=== PATIENT | male | born 1980 | race American Indian/Alaskan Native ===

== ENCOUNTER 2019-10-09 12:50 | Inpatient (IN) | payer OTHER ==
[2019-10-09] MEDS ORDERED: NALOXONE 0.4 MG/1 ML INJ IV PRN (12:59)
--- NOTE | 2019-10-09 13:02 | Emergency Department Report ---
ED General Adult HPI - General Chief complaint: Medical Clearance Stated complaint: POSS OD Time Seen by Provider: 10/09/19 12:58 Source: patient, EMS (verbal report received from EMS.EMS records not available at this time for chart dictation or review.), RN notes reviewed, old records reviewed Mode of arrival: Stretcher Limitations: Altered Mental Status, Physical Limitation - History of Present Illness Initial comments: Patient is a 39-year-old gentleman who is brought to the hospital by emergency medical services for possible overdose. Patient found in bed, and there is suspicion that he may have taken recreational ecstasy. EMS gave the patient Narcan in the field, which improved his mental status. They reported normal Accu-Chek in the field. Currently, the patient is awake, denies homicidality, suicidality physical pain. At the moment, he is not commenting on whether or not he took any drugs or medications. He denies headache, neck pain, chest pain, abdominal pain, homicidality, suicidality, intention to overdose. He indicates he does not have a primary care doctor. He apparently vomited on himself prior to arrival. -: This afternoon Consistency: other Improves with: other Worsens with: other - Related Data Previous Rx's Medication Instructions Recorded Last Taken Type DOXYCYCLINE Hyclate [Vibramycin 100 mg PO BID #20 capsule 04/09/14 Unknown Rx CAP] HYDROcodone/APAP 5-325 [[place] 1 each PO Q6HR PRN #14 tablet 04/09/14 Unknown Rx 5-325 mg TAB] Ibuprofen [Motrin] 800 mg PO Q8H PRN #20 tablet 04/09/14 Unknown Rx Allergies Allergy/AdvReac Type Severity Reaction Status Date / Time No Known Allergies Allergy Verified 10/09/19 13:26 ED Review of Systems ROS: Stated complaint: POSS OD Other details as noted in HPI Constitutional: denies: fever Eyes: denies: eye discharge ENT: denies: dental pain Respiratory: denies: wheezing Cardiovascular: denies: chest pain Gastrointestinal: denies: abdominal pain Neurological: confusion Psychiatric: denies: suicidal thoughts Hematological/Lymphatic: denies: easy bleeding ED Past Medical Hx - Past Medical History Additional medical history: scoliosis - Social History Smoking Status: Current Every Day Smoker Substance Use Type: Alcohol, Marijuana - Medications Home Medications: Home Medications Medication Instructions Recorded Confirmed Last Taken Type DOXYCYCLINE Hyclate [Vibramycin 100 mg PO BID #20 capsule 04/09/14 Unknown Rx CAP] HYDROcodone/APAP 5-325 [[place] 1 each PO Q6HR PRN #14 tablet 04/09/14 Unknown Rx 5-325 mg TAB] Ibuprofen [Motrin] 800 mg PO Q8H PRN #20 tablet 04/09/14 Unknown Rx ED Physical Exam - General Limitations: Other (patient a little bit confused.) General appearance: anxious, in distress - Head Head exam: Present: atraumatic, normocephalic - Eye Eye exam: Present: normal appearance, EOMI. Absent: nystagmus - ENT ENT exam: Present: normal exam, normal orophraynx, mucous membranes moist, normal external ear exam - Neck Neck exam: Present: normal inspection, full ROM. Absent: tenderness, meningismus - Respiratory Respiratory exam: Present: decreased breath sounds. Absent: respiratory distress - Cardiovascular Cardiovascular Exam: Present: normal rhythm, tachycardia, normal heart sounds. Absent: systolic murmur, diastolic murmur, rubs, gallop - GI/Abdominal GI/Abdominal exam: Present: soft. Absent: distended, tenderness, guarding, rebound, rigid, pulsatile mass - Rectal Rectal exam: Present: deferred - Extremities Exam Extremities exam: Present: normal inspection, full ROM, other (2+ pulses noted in the bilateral upper and lower extremities. There is no long bony tenderness. The muscular compartments are soft. The pelvis is stable.). Absent: pedal edema, calf tenderness - Back Exam Back exam: Present: normal inspection, full ROM. Absent: tenderness, CVA tenderness (R), CVA tenderness (L), paraspinal tenderness, vertebral tenderness - Neurological Exam Neurological exam: Present: alert, other (there is no facial droop. The tongue is midline. The extraocular movements are intact bilaterally. Moving 4 extremities spontaneously. Sensation is intact to light touch in 4 extremities spontaneously. Age-appropriate mental status.) - Psychiatric Psychiatric exam: Present: anxious - Skin Skin exam: Present: warm, dry, intact, normal color. Absent: rash ED Course Vital Signs 10/09/19 10/09/19 10/09/19 12:52 13:00 13:20 Temperature 98 F Pulse Rate 110 H 119 H 114 H Pulse Rate [ Right Lower Lobe] Respiratory 24 20 16 Rate Respiratory Rate [Right Lower Lobe] Blood Pressure 137/93 143/91 O2 Sat by Pulse 65 L 71 L 61 L Oximetry 10/09/19 10/09/19 10/09/19 13:41 13:46 14:00 Temperature Pulse Rate Pulse Rate [ 82 Right Lower Lobe] Respiratory Rate Respiratory 18 Rate [Right Lower Lobe] Blood Pressure 137/93 130/83 O2 Sat by Pulse 71 L 79 L Oximetry 10/09/19 10/09/19 10/09/19 14:30 15:00 15:11 Temperature Pulse Rate 116 H 131 H 116 H Pulse Rate [ Right Lower Lobe] Respiratory 21 26 H 22 Rate Respiratory Rate [Right Lower Lobe] Blood Pressure 101/63 122/95 101/63 O2 Sat by Pulse 82 L 87 87 Oximetry 10/09/19 10/09/19 10/09/19 15:21 15:30 15:41 Temperature Pulse Rate 115 H 113 H 113 H Pulse Rate [ Right Lower Lobe] Respiratory 21 20 21 Rate Respiratory Rate [Right Lower Lobe] Blood Pressure 101/63 144/83 144/83 O2 Sat by Pulse 88 87 89 Oximetry 10/09/19 10/09/19 10/09/19 15:45 15:51 16:00 Temperature Pulse Rate 108 H 101 H Pulse Rate [ Right Lower Lobe] Respiratory 19 18 Rate Respiratory Rate [Right Lower Lobe] Blood Pressure 144/83 136/85 O2 Sat by Pulse 91 90 90 Oximetry 10/09/19 10/09/19 16:11 16:35 Temperature 98.4 F Pulse Rate 106 H Pulse Rate [ Right Lower Lobe] Respiratory 23 Rate Respiratory Rate [Right Lower Lobe] Blood Pressure 136/85 O2 Sat by Pulse 91 Oximetry - Reevaluation(s) Reevaluation #1: 10/09/19 13:17 Differential diagnosis, including but not limited to: Overdose, aspiration, pneumonia, pneumonitis, intracranial lesion Assessment and plan: 39-year-old gentleman brought to the hospital by EMS with overdose of probable recreational drugs, requiring Narcan. The patient is afebrile, tachycardic and hypoxic. He is calm and cooperative, and has not endorsed homicidality or suicidality. He is placed on supplemental oxygen, EKG, CT scan of the brain, x-ray of the chest, screening laboratory studies ordered. Given hypoxia, tachycardia, the into [place] patient will be admitted to the medical service for observation and supportive care. As needed Narcan medication is ordered. Reevaluation #2: 10/09/19 13:56 Arterial blood gas demonstrates hypoxemic respiratory failure. Noncontrast CT scan of the brain appears to be negative for acute disease. I went back to evaluate the patient, he is alert, oriented lucid, saturating at 77% on a nonrebreather, but does not appear to be in any acute distress. He denied DVT and pulmonary embolism risk factors. He denies physical pain. Suspect pneumonitis secondary to aspiration. He is amenable to hospitalization. Ventimask has been ordered, respiratory therapy to switch over. Contacted Hospital physician, Dr. Nazia Stevenson, who has accepted the patient to the medical service. Discussed plan of care for admission with the patient, who verbalizes understanding and is amenable to this plan of care. ED Medical Decision Making - Lab Data Result diagrams: 10/10/19 03:50 10/10/19 03:50 Vital Signs (72 hours) 10/09/19 13:20 Temperature 98 F Pulse Rate 114 H Respiratory 16 Rate Blood Pressure 143/91 O2 Sat by Pulse 61 L Oximetry Lab Results 10/09/19 10/09/19 10/09/19 Range/Units 13:17 13:17 13:20 Hgb 16.6 H (11.8-15.2) gm/dl Hct 47.7 H (35.5-45.6) % Plt Count 197 (140-440) K/mm3 PT 13.9 (12.2-14.9) Sec. INR 1.06 (0.87-1.13) ABG pH 7.198 L* (7.350-7.450) pH Units ABG pCO2 42.8 mm Hg ABG pO2 46.8 L (80.0-90.0) mm Hg ABG HCO3 16.3 L (20.0-26.0) mmol/L ABG O2 Saturation 73.4 L (95.0-99.0) % ABG O2 Content 16.1 (0.0-44) ABG Base Excess -11.4 L (-2.0-3.0) mmol/L ABG Hemoglobin 16.6 (14.0-18.0) gm/dl ABG Carboxyhemoglobin 5.4 H (0.0-5.0) % ABG Methemoglobin 0.7 (0.0-1.5) % Oxyhemoglobin 68.9 L (95.0-99.0) % FiO2 50 % Vital Signs 10/09/19 10/09/19 10/09/19 12:52 13:00 13:20 Temperature 98 F Pulse Rate 110 H 119 H 114 H Pulse Rate [ Right Lower Lobe] Respiratory 24 20 16 Rate Respiratory Rate [Right Lower Lobe] Blood Pressure 137/93 143/91 O2 Sat by Pulse 65 L 71 L 61 L Oximetry 10/09/19 10/09/19 10/09/19 13:41 13:46 14:00 Temperature Pulse Rate Pulse Rate [ 82 Right Lower Lobe] Respiratory Rate Respiratory 18 Rate [Right Lower Lobe] Blood Pressure 137/93 130/83 O2 Sat by Pulse 71 L 79 L Oximetry 10/09/19 10/09/19 10/09/19 14:30 15:00 15:11 Temperature Pulse Rate 116 H 131 H 116 H Pulse Rate [ Right Lower Lobe] Respiratory 21 26 H 22 Rate Respiratory Rate [Right Lower Lobe] Blood Pressure 101/63 122/95 101/63 O2 Sat by Pulse 82 L 87 87 Oximetry 10/09/19 10/09/19 10/09/19 15:21 15:30 15:41 Temperature Pulse Rate 115 H 113 H 113 H Pulse Rate [ Right Lower Lobe] Respiratory 21 20 21 Rate Respiratory Rate [Right Lower Lobe] Blood Pressure 101/63 144/83 144/83 O2 Sat by Pulse 88 87 89 Oximetry 10/09/19 10/09/19 10/09/19 15:45 15:51 16:00 Temperature Pulse Rate 108 H 101 H Pulse Rate [ Right Lower Lobe] Respiratory 19 18 Rate Respiratory Rate [Right Lower Lobe] Blood Pressure 144/83 136/85 O2 Sat by Pulse 91 90 90 Oximetry 10/09/19 10/09/19 16:11 16:35 Temperature 98.4 F Pulse Rate 106 H Pulse Rate [ Right Lower Lobe] Respiratory 23 Rate Respiratory Rate [Right Lower Lobe] Blood Pressure 136/85 O2 Sat by Pulse 91 Oximetry Lab Results 10/09/19 10/09/19 10/09/19 Range/Units 13:17 13:17 13:17 Hgb (11.8-15.2) gm/dl Hct (35.5-45.6) % Plt Count (140-440) K/mm3 PT 13.9 (12.2-14.9) Sec. INR 1.06 (0.87-1.13) APTT 31.6 (24.2-36.6) Sec. ABG pH (7.350-7.450) pH Units ABG pCO2 mm Hg ABG pO2 (80.0-90.0) mm Hg ABG HCO3 (20.0-26.0) mmol/L ABG O2 Saturation (95.0-99.0) % ABG O2 Content (0.0-44) ABG Base Excess (-2.0-3.0) mmol/L ABG Hemoglobin (14.0-18.0) gm/dl ABG Carboxyhemoglobin (0.0-5.0) % ABG Methemoglobin (0.0-1.5) % Oxyhemoglobin (95.0-99.0) % FiO2 % Sodium 135 L (137-145) mmol/L Potassium 3.7 (3.6-5.0) mmol/L Chloride 98.0 (98-107) mmol/L Carbon Dioxide 12 L (22-30) mmol/L Anion Gap 29 mmol/L BUN 10 (9-20) mg/dL Creatinine 1.1 (0.8-1.5) mg/dL Estimated GFR > 60 ml/min BUN/Creatinine Ratio 9 % Glucose 158 H (75-100) mg/dL Lactic Acid (0.7-2.0) mmol/L Calcium 9.7 (8.4-10.2) mg/dL Magnesium 2.70 H (1.7-2.3) mg/dL Total Bilirubin 0.30 (0.1-1.2) mg/dL AST 41 H (5-40) units/L ALT 31 (7-56) units/L Alkaline Phosphatase 91 (35-129) units/L Total Creatine Kinase 1056 H (55-170) units/L Total Protein 8.4 H (6.3-8.2) g/dL Albumin 4.1 (3.9-5) g/dL Albumin/Globulin Ratio 1.0 % Salicylates < 0.3 L (2.8-20.0) mg/dL Acetaminophen (10.0-30.0) ug/mL Plasma/Serum Alcohol (0-0.07) % 10/09/19 10/09/19 10/09/19 Range/Units 13:17 13:17 13:17 Hgb 16.6 H (11.8-15.2) gm/dl Hct 47.7 H (35.5-45.6) % Plt Count 197 (140-440) K/mm3 PT (12.2-14.9) Sec. INR (0.87-1.13) APTT (24.2-36.6) Sec. ABG pH (7.350-7.450) pH Units ABG pCO2 mm Hg ABG pO2 (80.0-90.0) mm Hg ABG HCO3 (20.0-26.0) mmol/L ABG O2 Saturation (95.0-99.0) % ABG O2 Content (0.0-44) ABG Base Excess (-2.0-3.0) mmol/L ABG Hemoglobin (14.0-18.0) gm/dl ABG Carboxyhemoglobin (0.0-5.0) % ABG Methemoglobin (0.0-1.5) % Oxyhemoglobin (95.0-99.0) % FiO2 % Sodium (137-145) mmol/L Potassium (3.6-5.0) mmol/L Chloride (98-107) mmol/L Carbon Dioxide (22-30) mmol/L Anion Gap mmol/L BUN (9-20) mg/dL Creatinine (0.8-1.5) mg/dL Estimated GFR ml/min BUN/Creatinine Ratio % Glucose (75-100) mg/dL Lactic Acid (0.7-2.0) mmol/L Calcium (8.4-10.2) mg/dL Magnesium (1.7-2.3) mg/dL Total Bilirubin (0.1-1.2) mg/dL AST (5-40) units/L ALT (7-56) units/L Alkaline Phosphatase (35-129) units/L Total Creatine Kinase (55-170) units/L Total Protein (6.3-8.2) g/dL Albumin (3.9-5) g/dL Albumin/Globulin Ratio % Salicylates (2.8-20.0) mg/dL Acetaminophen < 5.0 L (10.0-30.0) ug/mL Plasma/Serum Alcohol 0.05 (0-0.07) % 10/09/19 10/09/19 Range/Units 13:20 13:51 Hgb (11.8-15.2) gm/dl Hct (35.5-45.6) % Plt Count (140-440) K/mm3 PT (12.2-14.9) Sec. INR (0.87-1.13) APTT (24.2-36.6) Sec. ABG pH 7.198 L* (7.350-7.450) pH Units ABG pCO2 42.8 mm Hg ABG pO2 46.8 L (80.0-90.0) mm Hg ABG HCO3 16.3 L (20.0-26.0) mmol/L ABG O2 Saturation 73.4 L (95.0-99.0) % ABG O2 Content 16.1 (0.0-44) ABG Base Excess -11.4 L (-2.0-3.0) mmol/L ABG Hemoglobin 16.6 (14.0-18.0) gm/dl ABG Carboxyhemoglobin 5.4 H (0.0-5.0) % ABG Methemoglobin 0.7 (0.0-1.5) % Oxyhemoglobin 68.9 L (95.0-99.0) % FiO2 50 % Sodium (137-145) mmol/L Potassium (3.6-5.0) mmol/L Chloride (98-107) mmol/L Carbon Dioxide (22-30) mmol/L Anion Gap mmol/L BUN (9-20) mg/dL Creatinine (0.8-1.5) mg/dL Estimated GFR ml/min BUN/Creatinine Ratio % Glucose (75-100) mg/dL Lactic Acid 5.80 H* (0.7-2.0) mmol/L Calcium (8.4-10.2) mg/dL Magnesium (1.7-2.3) mg/dL Total Bilirubin (0.1-1.2) mg/dL AST (5-40) units/L ALT (7-56) units/L Alkaline Phosphatase (35-129) units/L Total Creatine Kinase (55-170) units/L Total Protein (6.3-8.2) g/dL Albumin (3.9-5) g/dL Albumin/Globulin Ratio % Salicylates (2.8-20.0) mg/dL Acetaminophen (10.0-30.0) ug/mL Plasma/Serum Alcohol (0-0.07) % - EKG Data -: EKG Interpreted by Ut - EKG Data 10/09/19 13:18 There is no prior EKG available for comparison. The EKG shows a sinus rhythm, tachycardia, QTC 481 ms, there is a left ventricular voltage, atrial enlargement, motion artifact, no endorsement of chest pain. The EKG today is not consistent with an ST elevation myocardial infarction. - Radiology Data Radiology results: pending, report reviewed, image reviewed ct head negative Print Report Referring Physician: GEO VALIENTE Patient Name: NEDRA GOMEZ Date of : 1980 Sex: Male Report Date: 2019-10-09 Report Status: Finalized Findings [facility] [address] [place] [address] XRay Report Signed Patient: NEDRA GOMEZ MR#: [id number] : 1980 Acct:[id number] Age/Sex: 39 / M ADM Date: 10/09/19 Loc: ED Attending Dr: Ordering Physician: GEO VALIENTE MD Date of Service: 10/09/19 Procedure(s): XR chest 1V ap Accession Number(s): [id number] cc: GEO VALIENTE MD Fluoro Time In Minutes: CHEST 1 VIEW 10/09/2019 1:06 PM INDICATION / CLINICAL INFORMATION: Alcohol Intoxication. COMPARISON: None available. FINDINGS: SUPPORT DEVICES: None. HEART / MEDIASTINUM: No significant abnormality. LUNGS / PLEURA: There is right mid and lower lung parenchymal opacification. No pneumothorax. ADDITIONAL FINDINGS: No significant additional findings. IMPRESSION: 1. Right middle and lower lung airspace opacification concerning for pneumonia and/or aspiration. Signer Name: Jefferson Selby MD Signed: 10/09/2019 1:35 PM Workstation Name: [id number] Transcribed By: [place] Dictated By: Jefferson Selby MD Electronically Authenticated By: Jefferson Selby MD Signed Date/Time: 10/09/19 5383 Critical Care Time: Yes Critical care time in (mins) excluding proc time.: 35 Critical care attestation.: If time is entered above; I have spent that time in minutes in the direct care of this critically ill patient, excluding procedure time. ED Disposition Clinical Impression: Acute hypoxemic respiratory failure, Aspiration pneumonitis Overdose Qualifiers: Encounter type: initial encounter Injury intent: undetermined intent Qualified Code(s): T50.904A - Poisoning by unspecified drugs, medicaments and biological substances, undetermined, initial encounter Disposition: DC09 OP ADMIT IP TO THIS HOSP Is pt being admited?: Yes Condition: Serious
[2019-10-09] MEDS ORDERED: SODIUM CHLORIDE 0.9% 1000 ML 2,000 ML IV ONE (13:04)
[2019-10-09] MEDS ORDERED: ALBUTEROL 2.5 MG/3 ML NEBU IH ONE (13:07)
[2019-10-09 13:35] LABS: Hematocrit 47.7 % (35.5-45.6); Hemoglobin 16.6 gm/dl (11.8-15.2)
--- NOTE | 2019-10-09 13:39 | XRay Report ---
CHEST 1 VIEW 10/09/2019 1:06 PM INDICATION / CLINICAL INFORMATION: Alcohol Intoxication. COMPARISON: None available. FINDINGS: SUPPORT DEVICES: None. HEART / MEDIASTINUM: No significant abnormality. LUNGS / PLEURA: There is right mid and lower lung parenchymal opacification. No pneumothorax. ADDITIONAL FINDINGS: No significant additional findings. IMPRESSION: 1. Right middle and lower lung airspace opacification concerning for pneumonia and/or aspiration. Signer Name: Jefferson Selby MD Signed: 10/09/2019 1:35 PM Workstation Name: [id number]
[2019-10-09 13:40] LABS: ABG Base Excess -11.4 mmol/L (-2.0-3.0); ABG HCO3 16.3 mmol/L (20.0-26.0); ABG Methemoglobin 0.7 % (0.0-1.5); ABG Oxygen Saturation 73.4 % (95.0-99.0); ABG PCO2 42.8 mm Hg; ABG PO2 46.8 mm Hg (80.0-90.0)
[2019-10-09 13:44] LABS: ABG PH 7.198 pH Units (7.350-7.450)
[2019-10-09 13:49] LABS: INR 1.06 (0.87-1.13)
[2019-10-09 13:50] LABS: Partial Thromboplastin Time 31.6 Sec. (24.2-36.6)
[2019-10-09 13:59] LABS: Alanine Aminotransferase 31 units/L (7-56); Albumin 4.1 g/dL (3.9-5); BUN/Creatinine Ratio 9; Blood Urea Nitrogen 10 mg/dL (9-20); Calcium 9.7 mg/dL (8.4-10.2); Hemolysis Index 59
--- NOTE | 2019-10-09 14:32 | Cat Scan Report ---
NONENHANCED CT SCAN OF THE HEAD: INDICATION / CLINICAL INFORMATION: 39 years Male; overdose, resolving ams. TECHNIQUE: Routine CT head without contrast. All CT scans at this location are performed using CT dos e reduction for ALARA by means of automated exposure control. COMPARISON: None. FINDINGS: BRAIN / INTRACRANIAL CONTENTS: No acute hemorrhage, mass effect, midline shift, hydrocephalus, or ac [place], large territorial infarct. No chronic infarct or focal atrophy. Normal brain volume and ventricu lar/sulcal size for age. No significant white matter abnormality. CRANIOCERVICAL JUNCTION: No significant abnormality. ORBITS: No significant abnormality of visualized orbits. SINUSES / MASTOIDS: No significant abnormality of the visualized paranasal sinuses or mastoid air halima ls. ADDITIONAL FINDINGS: None. IMPRESSION: No focal parenchymal lesion in the brain Signer Name: Gabrielle Rodriguez MD Signed: 10/09/2019 2:28 PM Workstation Name: [id number]
[2019-10-09] MEDS: SODIUM CHLORIDE 0.9% 1000 ML 1,000 ML IV SCH (18:00)
--- NOTE | 2019-10-09 18:22 | History and Physical Report ---
History of Present Illness Date of examination: 10/09/19 Date of admission: 10/09/19 13:57 Chief complaint: Decreased responsiveness for last 2 to 3 hours. History of present illness: 39-year-old male with no significant past medical history brought in for altered mental status and decreased responsiveness. Patient apparently overdosed on ecstasy. History is not reliable. Patient was given Narcan by EMS after which there was some improvement in the mental status. Patient had normal Accu-Chek. No homicidality or suicidality. Past Medical History Additional medical history: scoliosis Social History Smoking Status: Current Every Day Smoker Substance Use Type: Alcohol, Marijuana Past surgical history none Family history Htn Medications Home Medications: Home Medications Medication Instructions Recorded Confirmed Last Taken Type DOXYCYCLINE Hyclate [Vibramycin 100 mg PO BID #20 capsule 04/09/14 Unknown Rx CAP] HYDROcodone/APAP 5-325 [[place] 1 each PO Q6HR PRN #14 tablet 04/09/14 Unknown Rx 5-325 mg TAB] Ibuprofen [Motrin] 800 mg PO Q8H PRN #20 tablet 04/09/14 Unknown Rx Review of Systems ROS: Stated complaint: POSS OD Other details as noted in HPI Constitutional: denies: fever Eyes: denies: eye discharge ENT: denies: dental pain Respiratory: denies: wheezing Cardiovascular: denies: chest pain Gastrointestinal: denies: abdominal pain Neurological: confusion Psychiatric: denies: suicidal thoughts Hematological/Lymphatic: denies: easy bleeding Medications and Allergies Allergies Allergy/AdvReac Type Severity Reaction Status Date / Time No Known Allergies Allergy Verified 10/09/19 13:26 Home Medications Medication Instructions Recorded Confirmed Last Taken Type DOXYCYCLINE Hyclate [Vibramycin 100 mg PO BID #20 capsule 04/09/14 Unknown Rx CAP] HYDROcodone/APAP 5-325 [[place] 1 each PO Q6HR PRN #14 tablet 04/09/14 Unknown Rx 5-325 mg TAB] Ibuprofen [Motrin] 800 mg PO Q8H PRN #20 tablet 04/09/14 Unknown Rx Active Meds: Active Medications Albuterol (Proventil) 2.5 mg IH QIDRT THOR Sodium Chloride (Nacl 0.9% 1000 Ml) 1,000 mls @ 125 mls/hr IV DIRECT THOR Last Admin: 10/09/19 18:00 Dose: 125 mls/hr Documented by: Naloxone HCl (Naloxone) 0.1 mg IV Q2MIN PRN PRN Reason: Res Rate </= 8 or 02 SAT < 92% Exam - Constitutional Vitals: Temp Pulse Resp BP Pulse Ox 98.4 F 98 H 17 123/70 98 10/09/19 16:35 10/09/19 18:11 10/09/19 18:11 10/09/19 18:11 10/09/19 18:11 General appearance: Present: no acute distress, well-nourished - EENT Eyes: Present: PERRL ENT: hearing intact, clear oral mucosa - Neck Neck: Present: supple, normal ROM - Respiratory Respiratory effort: normal Respiratory: bilateral: CTA - Cardiovascular Heart rate: 78 Rhythm: regular Heart Sounds: Present: S1 & S2. Absent: rub, click - Extremities Extremities: no ischemia, pulses intact, pulses symmetrical, No edema Peripheral Pulses: within normal limits - Abdominal General gastrointestinal: Present: soft, non-tender, non-distended, normal bowel sounds Male genitourinary: Present: normal - Rectal Rectal Exam: deferred - Integumentary Integumentary: Present: clear, warm, dry - Musculoskeletal Musculoskeletal: gait normal, strength equal bilaterally - Psychiatric Psychiatric: appropriate mood/affect, intact judgment & insight, depressed, other (Lethargic intermittently) - Neurologic Neurologic: CNII-XII intact, moves all extremities - Allied Health Allied health notes reviewed: nursing, case management Results - Labs CBC & Chem 7: 10/10/19 03:50 10/10/19 03:50 Labs: Laboratory Last Values Hgb 16.6 gm/dl (11.8-15.2) H 10/09/19 13:17 Hct 47.7 % (35.5-45.6) H 10/09/19 13:17 Plt Count 197 K/mm3 (140-440) 10/09/19 13:17 PT 13.9 Sec. (12.2-14.9) 10/09/19 13:17 INR 1.06 (0.87-1.13) 10/09/19 13:17 APTT 31.6 Sec. (24.2-36.6) 10/09/19 13:17 ABG pH 7.198 pH Units (7.350-7.450) L* 10/09/19 13:20 ABG pCO2 42.8 mm Hg 10/09/19 13:20 ABG pO2 46.8 mm Hg (80.0-90.0) L 10/09/19 13:20 ABG HCO3 16.3 mmol/L (20.0-26.0) L 10/09/19 13:20 ABG O2 Saturation 73.4 % (95.0-99.0) L 10/09/19 13:20 ABG O2 Content 16.1 (0.0-44) 10/09/19 13:20 ABG Base Excess -11.4 mmol/L (-2.0-3.0) L 10/09/19 13:20 ABG Hemoglobin 16.6 gm/dl (14.0-18.0) 10/09/19 13:20 ABG Carboxyhemoglobin 5.4 % (0.0-5.0) H 10/09/19 13:20 ABG Methemoglobin 0.7 % (0.0-1.5) 10/09/19 13:20 Oxyhemoglobin 68.9 % (95.0-99.0) L 10/09/19 13:20 FiO2 50 % 10/09/19 13:20 Sodium 135 mmol/L (137-145) L 10/09/19 13:17 Potassium 3.7 mmol/L (3.6-5.0) 10/09/19 13:17 Chloride 98.0 mmol/L (98-107) 10/09/19 13:17 Carbon Dioxide 12 mmol/L (22-30) L 10/09/19 13:17 Anion Gap 29 mmol/L 10/09/19 13:17 BUN 10 mg/dL (9-20) 10/09/19 13:17 Creatinine 1.1 mg/dL (0.8-1.5) 10/09/19 13:17 Estimated GFR > 60 ml/min 10/09/19 13:17 BUN/Creatinine Ratio 9 % 10/09/19 13:17 Glucose 158 mg/dL (75-100) H 10/09/19 13:17 Lactic Acid 2.10 mmol/L (0.7-2.0) H* 10/09/19 16:41 Calcium 9.7 mg/dL (8.4-10.2) 10/09/19 13:17 Magnesium 2.70 mg/dL (1.7-2.3) H 10/09/19 13:17 Total Bilirubin 0.30 mg/dL (0.1-1.2) 10/09/19 13:17 AST 41 units/L (5-40) H 10/09/19 13:17 ALT 31 units/L (7-56) 10/09/19 13:17 Alkaline Phosphatase 91 units/L (35-129) 10/09/19 13:17 Total Creatine Kinase 1056 units/L (55-170) H 10/09/19 13:17 Total Protein 8.4 g/dL (6.3-8.2) H 10/09/19 13:17 Albumin 4.1 g/dL (3.9-5) 10/09/19 13:17 Albumin/Globulin Ratio 1.0 % 10/09/19 13:17 Salicylates < 0.3 mg/dL (2.8-20.0) L 10/09/19 13:17 Acetaminophen < 5.0 ug/mL (10.0-30.0) L 10/09/19 13:17 Plasma/Serum Alcohol 0.05 % (0-0.07) 10/09/19 13:17 Short CBC 10/09/19 10/09/19 10/10/19 Range/Units 13:17 20:17 03:50 WBC 17.4 H 13.9 H (4.5-11.0) K/mm3 Hgb 16.6 H 15.5 H 14.2 (11.8-15.2) gm/dl Hct 47.7 H 45.7 H 41.6 (35.5-45.6) % Plt Count 197 182 166 (140-440) K/mm3 BMP 10/09/19 10/10/19 13:17 03:50 Sodium 135 L 136 L Potassium 3.7 4.2 Chloride 98.0 99.5 Carbon Dioxide 12 L 27 D BUN 10 9 Creatinine 1.1 0.8 Glucose 158 H 100 Calcium 9.7 9.1 Cardiac Enzymes 10/09/19 Range/Units 13:17 Total Creatine Kinase 1056 H (55-170) units/L Liver Function 10/09/19 10/10/19 Range/Units 13:17 03:50 Total Bilirubin 0.30 0.60 (0.1-1.2) mg/dL AST 41 H 33 (5-40) units/L ALT 31 21 (7-56) units/L Alkaline Phosphatase 91 69 (35-129) units/L Albumin 4.1 3.9 (3.9-5) g/dL Assessment and Plan Advance Directives: Yes (Full code) VTE prophylaxis?: Chemical Plan of care discussed with patient/family: Yes - Patient Problems (1) Acute hypoxemic respiratory failure Current Visit: Yes Status: Acute Plan to address problem: Respiratory suppression because of ecstasy overdose Should improve with IV fluids and oxygen. It is a function of time. No need for intubation. Sats running at 94 to 95% on room air. Initial sats were in the mid 80s and patient was on Ventimask. DuoNebs as needed. (2) Overdose Current Visit: Yes Status: Acute Qualifiers: Encounter type: initial encounter Injury intent: undetermined intent Qualified Code(s): T50.904A - Poisoning by unspecified drugs, medicaments and biological substances, undetermined, initial encounter Plan to address problem: Patient to be counseled about ecstasy use and the dangers. Mental health consult requested for clearance for discharge. Patient is not suicidal or homicidal. (3) Lactic acidosis Current Visit: Yes Status: Acute Plan to address problem: Secondary to respiratory failure and overdose No sepsis identified (4) Polysubstance abuse Current Visit: Yes Status: Chronic Plan to address problem: Patient counseled about the polysubstance abuse and also to stop smoking (5) Nicotine dependence Current Visit: Yes Status: Chronic Qualifiers: Nicotine product type: cigarettes Plan to address problem: NicoDerm patch initiated Patient counseled about smoking -- to stop (6) DVT prophylaxis Current Visit: Yes Status: Acute Plan to address problem: On heparin and GI prophylaxis
[2019-10-09] MEDS ORDERED: METOCLOPRAMIDE 10 MG/2 ML INJ IV PRN (18:25)
[2019-10-09] MEDS ORDERED: HYDROmorphone 1 MG/1 ML INJ IV PRN (18:25)
[2019-10-09] MEDS ORDERED: ACETAMINOPHEN 325 MG TAB PO PRN (18:25)
[2019-10-09] MEDS ORDERED: ONDANSETRON 4 MG/2 ML INJ IV PRN (18:25)
[2019-10-09] MEDS: ALBUTEROL 2.5 MG/3 ML NEBU IH SCH (18:40)
[2019-10-09] MEDS ORDERED: IPRATROPIUM/ALBUTEROL SULFATE 3 ML AMPUL.NEB IH PRN (18:51)
[2019-10-09] MEDS ORDERED: D5W/0.9% NACL 1,000 ML IV SCH (19:00)
[2019-10-09] MEDS ORDERED: hydrALAZINE 20 MG/1 ML INJ IV PRN (19:14)
[2019-10-09] MEDS ORDERED: ALBUTEROL 2.5 MG/3 ML NEBU IH PRN (19:23)
[2019-10-09 20:43] LABS: Basophils % (Auto) 0.2 % (0.0-1.8); Hematocrit 45.7 % (35.5-45.6); Hemoglobin 15.5 gm/dl (11.8-15.2); Lymphocytes # (Auto) 0.9 K/mm3 (1.2-5.4); Lymphocytes % (Auto) 5.4 % (13.4-35.0); Mean Corpuscular HGB Conc 34 % (32-34); Mean Corpuscular Volume 93 fl (84-94); Monocytes # (Auto) 0.9 K/mm3 (0.0-0.8); Monocytes % (Auto) 5.1 % (0.0-7.3); Platelet Count 182 K/mm3 (140-440); Red Blood Count 4.91 M/mm3 (3.65-5.03); Red Cell Distribution Width 14.3 % (13.2-15.2)
[2019-10-09] MEDS: HEPARIN 5,000 UNIT/1 ML VIAL SUB-Q SCH (21:19)
[2019-10-09] MEDS: FAMOTIDINE 20 MG/2 ML INJ IV SCH (21:19)
[2019-10-09] MEDS: IPRATROPIUM/ALBUTEROL SULFATE 3 ML AMPUL.NEB IH SCH (21:55)
[2019-10-10] MEDS: SODIUM CHLORIDE 0.9% 1000 ML 1,000 ML IV SCH (01:45)
[2019-10-10 06:53] LABS: Alanine Aminotransferase 21 units/L (7-56); Albumin 3.9 g/dL (3.9-5); BUN/Creatinine Ratio 11; Basophils % (Auto) 0.2 % (0.0-1.8); Blood Urea Nitrogen 9 mg/dL (9-20); Calcium 9.1 mg/dL (8.4-10.2); Eosinophils % (Auto) 0.2 % (0.0-4.3); Hematocrit 41.6 % (35.5-45.6); Hemoglobin 14.2 gm/dl (11.8-15.2); Hemolysis Index 0; Lymphocytes # (Auto) 2.5 K/mm3 (1.2-5.4); Lymphocytes % (Auto) 18.1 % (13.4-35.0); Mean Corpuscular HGB Conc 34 % (32-34); Mean Corpuscular Volume 93 fl (84-94); Monocytes # (Auto) 0.7 K/mm3 (0.0-0.8); Platelet Count 166 K/mm3 (140-440); Red Blood Count 4.49 M/mm3 (3.65-5.03); Red Cell Distribution Width 14.2 % (13.2-15.2)
[2019-10-10] MEDS: IPRATROPIUM/ALBUTEROL SULFATE 3 ML AMPUL.NEB IH SCH ×2 (08:34→15:02)
[2019-10-10] MEDS: FAMOTIDINE 20 MG/2 ML INJ IV SCH (10:34)
[2019-10-10] MEDS: HEPARIN 5,000 UNIT/1 ML VIAL SUB-Q SCH (10:34)
--- NOTE | 2019-10-10 11:20 | Progress Note ---
Assessment and Plan - Patient Problems (1) Acute hypoxemic respiratory failure Current Visit: Yes Status: Acute Plan to address problem: Respiratory suppression because of ecstasy overdose Should improve with IV fluids and oxygen. It is a function of time. No need for intubation. Sats running at 94 to 95% on room air. Initial sats were in the mid 80s and patient was on Ventimask. DuoNebs as needed. (2) Overdose Current Visit: Yes Status: Acute Qualifiers: Encounter type: initial encounter Injury intent: undetermined intent Qualified Code(s): T50.904A - Poisoning by unspecified drugs, medicaments and biological substances, undetermined, initial encounter Plan to address problem: Patient to be counseled about ecstasy use and the dangers. Mental health consul t requested for clearance for discharge. Patient is not suicidal or homicidal. (3) Lactic acidosis Current Visit: Yes Status: Acute Plan to address problem: Secondary to respiratory failure and overdose No sepsis identified (4) Polysubstance abuse Current Visit: Yes Status: Chronic Plan to address problem: Patient counseled about the polysubstance abuse and also to stop smoking (5) Nicotine dependence Current Visit: Yes Status: Chronic Qualifiers: Nicotine product type: cigarettes Plan to address problem: NicoDerm patch initiated Patient counseled about smoking -- to stop (6) DVT prophylaxis Current Visit: Yes Status: Acute Plan to address problem: On heparin and GI prophylaxis Subjective Date of service: 10/10/19 Principal diagnosis: Ecstasy overdose Interval history: Patient more alert and oriented. Near baseline. Breathing well. Sats are high 90s. Objective - Constitutional Vitals: Vital Signs - 12hr 10/09/19 10/09/19 10/09/19 23:21 23:31 23:41 Temperature Pulse Rate 98 H 95 H 99 H Pulse Rate [ From Monitor] Pulse Rate [ Right Lower Lobe] Respiratory 18 17 18 Rate Respiratory Rate [Right Lower Lobe] Blood Pressure 145/66 145/66 145/66 O2 Sat by Pulse 98 100 100 Oximetry 10/09/19 10/10/19 10/10/19 23:51 00:00 00:01 Temperature 97.4 F L Pulse Rate 101 H 92 H Pulse Rate [ From Monitor] Pulse Rate [ Right Lower Lobe] Respiratory 18 17 Rate Respiratory Rate [Right Lower Lobe] Blood Pressure 145/66 128/63 O2 Sat by Pulse 100 100 Oximetry 10/10/19 10/10/19 10/10/19 00:11 00:21 00:31 Temperature Pulse Rate 97 H 98 H 111 H Pulse Rate [ From Monitor] Pulse Rate [ Right Lower Lobe] Respiratory 18 20 21 Rate Respiratory Rate [Right Lower Lobe] Blood Pressure 128/63 128/63 128/63 O2 Sat by Pulse 100 99 98 Oximetry 10/10/19 10/10/19 10/10/19 00:41 00:51 01:00 Temperature Pulse Rate 109 H 105 H 97 H Pulse Rate [ From Monitor] Pulse Rate [ Right Lower Lobe] Respiratory 18 18 18 Rate Respiratory Rate [Right Lower Lobe] Blood Pressure 128/63 128/63 142/76 O2 Sat by Pulse 98 98 100 Oximetry 10/10/19 10/10/19 10/10/19 01:11 01:21 01:31 Temperature Pulse Rate 97 H 94 H 96 H Pulse Rate [ From Monitor] Pulse Rate [ Right Lower Lobe] Respiratory 18 18 15 Rate Respiratory Rate [Right Lower Lobe] Blood Pressure 142/76 128/63 128/63 O2 Sat by Pulse 100 100 100 Oximetry 10/10/19 10/10/19 10/10/19 01:41 01:51 02:00 Temperature Pulse Rate 90 96 H 99 H Pulse Rate [ 84 From Monitor] Pulse Rate [ Right Lower Lobe] Respiratory 15 17 15 Rate Respiratory Rate [Right Lower Lobe] Blood Pressure 128/63 128/63 149/82 O2 Sat by Pulse 100 100 100 Oximetry 10/10/19 10/10/19 10/10/19 02:11 02:21 02:31 Temperature Pulse Rate 128 H 96 H 94 H Pulse Rate [ From Monitor] Pulse Rate [ Right Lower Lobe] Respiratory 28 H 17 17 Rate Respiratory Rate [Right Lower Lobe] Blood Pressure 149/82 149/82 149/82 O2 Sat by Pulse 100 99 99 Oximetry 10/10/19 10/10/19 10/10/19 02:41 02:51 03:00 Temperature Pulse Rate 92 H 92 H 96 H Pulse Rate [ From Monitor] Pulse Rate [ Right Lower Lobe] Respiratory 22 15 20 Rate Respiratory Rate [Right Lower Lobe] Blood Pressure 149/82 149/82 125/60 O2 Sat by Pulse 100 100 97 Oximetry 10/10/19 10/10/19 10/10/19 03:11 03:21 03:31 Temperature Pulse Rate 91 H 112 H 88 Pulse Rate [ From Monitor] Pulse Rate [ Right Lower Lobe] Respiratory 17 15 13 Rate Respiratory Rate [Right Lower Lobe] Blood Pressure 125/60 125/60 125/60 O2 Sat by Pulse 92 94 100 Oximetry 10/10/19 10/10/19 10/10/19 03:41 08:00 08:35 Temperature 98.7 F 98.5 F Pulse Rate Pulse Rate [ From Monitor] Pulse Rate [ 89 Right Lower Lobe] Respiratory Rate Respiratory 12 Rate [Right Lower Lobe] Blood Pressure O2 Sat by Pulse Oximetry 10/10/19 08:36 Temperature Pulse Rate Pulse Rate [ From Monitor] Pulse Rate [ Right Lower Lobe] Respiratory Rate Respiratory Rate [Right Lower Lobe] Blood Pressure O2 Sat by Pulse 98 Oximetry General appearance: Present: no acute distress, well-nourished - EENT Eyes: PERRL, EOM intact ENT: hearing intact, clear oral mucosa Ears: bilateral: normal - Neck Neck: supple, normal ROM - Respiratory Respiratory effort: normal Respiratory: bilateral: CTA - Breasts Breasts: normal - Cardiovascular Heart rate: 78 Rhythm: regular Heart Sounds: Present: S1 & S2. Absent: gallop, rub Extremities: pulses intact, No edema, normal color, Full ROM - Gastrointestinal General gastrointestinal: Present: soft, non-tender, non-distended, normal bowel sounds - Genitourinary Male genitourinary: normal - Integumentary Integumentary: clear, warm, dry - Musculoskeletal Musculoskeletal: 1, strength equal bilaterally - Neurologic Neurologic: moves all extremities - Psychiatric Psychiatric: memory intact, appropriate mood/affect, intact judgment & insight - Labs CBC & Chem 7: 10/10/19 03:50 10/10/19 03:50 Labs: Abnormal lab results 10/09/19 10/09/19 10/09/19 Range/Units 13:17 13:17 13:17 WBC (4.5-11.0) K/mm3 Hgb (11.8-15.2) gm/dl Hct (35.5-45.6) % Lymph % (Auto) (13.4-35.0) % Lymph # (1.2-5.4) K/mm3 [place] # (0.0-0.8) K/mm3 Seg Neutrophils % (40.0-70.0) % Seg Neutrophils # (1.8-7.7) K/mm3 ABG pH (7.350-7.450) pH Units ABG pO2 (80.0-90.0) mm Hg ABG HCO3 (20.0-26.0) mmol/L ABG O2 Saturation (95.0-99.0) % ABG Base Excess (-2.0-3.0) mmol/L ABG Carboxyhemoglobin (0.0-5.0) % Oxyhemoglobin (95.0-99.0) % Sodium 135 L (137-145) mmol/L Carbon Dioxide 12 L (22-30) mmol/L Glucose 158 H (75-100) mg/dL Lactic Acid (0.7-2.0) mmol/L Magnesium 2.70 H (1.7-2.3) mg/dL AST 41 H (5-40) units/L Total Creatine Kinase 1056 H (55-170) units/L Total Protein 8.4 H (6.3-8.2) g/dL Salicylates < 0.3 L (2.8-20.0) mg/dL Acetaminophen < 5.0 L (10.0-30.0) ug/mL 10/09/19 10/09/19 10/09/19 Range/Units 13:17 13:20 13:51 WBC (4.5-11.0) K/mm3 Hgb 16.6 H (11.8-15.2) gm/dl Hct 47.7 H (35.5-45.6) % Lymph % (Auto) (13.4-35.0) % Lymph # (1.2-5.4) K/mm3 [place] # (0.0-0.8) K/mm3 Seg Neutrophils % (40.0-70.0) % Seg Neutrophils # (1.8-7.7) K/mm3 ABG pH 7.198 L* (7.350-7.450) pH Units ABG pO2 46.8 L (80.0-90.0) mm Hg ABG HCO3 16.3 L (20.0-26.0) mmol/L ABG O2 Saturation 73.4 L (95.0-99.0) % ABG Base Excess -11.4 L (-2.0-3.0) mmol/L ABG Carboxyhemoglobin 5.4 H (0.0-5.0) % Oxyhemoglobin 68.9 L (95.0-99.0) % Sodium (137-145) mmol/L Carbon Dioxide (22-30) mmol/L Glucose (75-100) mg/dL Lactic Acid 5.80 H* (0.7-2.0) mmol/L Magnesium (1.7-2.3) mg/dL AST (5-40) units/L Total Creatine Kinase (55-170) units/L Total Protein (6.3-8.2) g/dL Salicylates (2.8-20.0) mg/dL Acetaminophen (10.0-30.0) ug/mL 10/09/19 10/09/19 10/10/19 Range/Units 16:41 20:17 03:50 WBC 17.4 H 13.9 H (4.5-11.0) K/mm3 Hgb 15.5 H (11.8-15.2) gm/dl Hct 45.7 H (35.5-45.6) % Lymph % (Auto) 5.4 L (13.4-35.0) % Lymph # 0.9 L (1.2-5.4) K/mm3 [place] # 0.9 H (0.0-0.8) K/mm3 Seg Neutrophils % 89.3 H 76.5 H (40.0-70.0) % Seg Neutrophils # 15.5 H 10.6 H (1.8-7.7) K/mm3 ABG pH (7.350-7.450) pH Units ABG pO2 (80.0-90.0) mm Hg ABG HCO3 (20.0-26.0) mmol/L ABG O2 Saturation (95.0-99.0) % ABG Base Excess (-2.0-3.0) mmol/L ABG Carboxyhemoglobin (0.0-5.0) % Oxyhemoglobin (95.0-99.0) % Sodium (137-145) mmol/L Carbon Dioxide (22-30) mmol/L Glucose (75-100) mg/dL Lactic Acid 2.10 H* (0.7-2.0) mmol/L Magnesium (1.7-2.3) mg/dL AST (5-40) units/L Total Creatine Kinase (55-170) units/L Total Protein (6.3-8.2) g/dL Salicylates (2.8-20.0) mg/dL Acetaminophen (10.0-30.0) ug/mL 10/10/19 Range/Units 03:50 WBC (4.5-11.0) K/mm3 Hgb (11.8-15.2) gm/dl Hct (35.5-45.6) % Lymph % (Auto) (13.4-35.0) % Lymph # (1.2-5.4) K/mm3 [place] # (0.0-0.8) K/mm3 Seg Neutrophils % (40.0-70.0) % Seg Neutrophils # (1.8-7.7) K/mm3 ABG pH (7.350-7.450) pH Units ABG pO2 (80.0-90.0) mm Hg ABG HCO3 (20.0-26.0) mmol/L ABG O2 Saturation (95.0-99.0) % ABG Base Excess (-2.0-3.0) mmol/L ABG Carboxyhemoglobin (0.0-5.0) % Oxyhemoglobin (95.0-99.0) % Sodium 136 L (137-145) mmol/L Carbon Dioxide (22-30) mmol/L Glucose (75-100) mg/dL Lactic Acid (0.7-2.0) mmol/L Magnesium (1.7-2.3) mg/dL AST (5-40) units/L Total Creatine Kinase (55-170) units/L Total Protein (6.3-8.2) g/dL Salicylates (2.8-20.0) mg/dL Acetaminophen (10.0-30.0) ug/mL
[2019-10-10] MEDS ORDERED: NICOTINE 14 MG/24 HR PATCH TD SCH (12:00)
--- NOTE | 2019-10-10 12:28 | Discharge Summary ---
Providers - Providers Date of Admission: 10/09/19 13:57 Date of discharge: 10/10/19 Attending physician: RAMESH ROMERO 10/09/19 18:42 Consult to Physician [CONS] Routine Comment: Consulting Provider: CADE HILLIARD Physician Instructions: Reason For Exam: Respiratory failure 10/10/19 09:08 Consult to Mental Health [CONS] Routine Reason For Exam: Possible overdose Primary care physician: [facility], Hospitalization Condition: Serious Hospital course: Patient was admitted for decreased responsiveness secondary to ecstasy use for first time. Patient improved with IV fluids and respiratory support. Patients oxygen saturation at 98% (1) Acute hypoxemic respiratory failure Current Visit: Yes Status: Acute Plan to address problem: Respiratory suppression because of ecstasy overdose Should improve with IV fluids and oxygen. It is a function of time. No need for intubation. Sats running at 94 to 95% on room air. Initial sats were in the mid 80s and patient was on Ventimask. Respiratory failure resolved Patient stable Does not need any duo nebs (2) Overdose Current Visit: Yes Status: Acute Qualifiers: Encounter type: initial encounter Injury intent: undetermined intent Qualified Code(s): T50.904A - Poisoning by unspecified drugs, medicaments and bi ological substances, undetermined, initial encounter Plan to address problem: Patient counseled about ecstasy use and the dangers of ecstasy Patient says he learned his lesson. Does not want to use any more drugs (3) Lactic acidosis Current Visit: Yes Status: Acute Plan to address problem: Secondary to respiratory failure and overdose No sepsis identified cocaine laced with fentanyl (4) Polysubstance abuse Current Visit: Yes Status: Chronic Plan to address problem: Patient counseled about the polysubstance abuse and also to stop smoking (5) Nicotine dependence Current Visit: Yes Status: Chronic Qualifiers: Nicotine product type: cigarettes Plan to address problem: NicoDerm patch initiated Patient counseled about smoking -- to stop Disposition: TO HOME OR SELFCARE - Discharge Diagnoses (1) Acute hypoxemic respiratory failure Status: Acute (2) Overdose Status: Acute Qualifiers: Encounter type: initial encounter Injury intent: undetermined intent Qualified Code(s): T50.904A - Poisoning by unspecified drugs, medicaments and bi ological substances, undetermined, initial encounter (3) Lactic acidosis Status: Acute (4) Polysubstance abuse Status: Chronic (5) Nicotine dependence Status: Chronic Qualifiers: Nicotine product type: cigarettes (6) DVT prophylaxis Status: Acute Core Measure Documentation - Palliative Care Palliative Care/ Comfort Measures: Not Applicable - Core Measures Any of the following diagnoses?: none Exam - Constitutional Vitals: Temp Pulse Resp BP Pulse Ox 98.5 F 89 12 125/60 98 10/10/19 08:00 10/10/19 08:35 10/10/19 08:35 10/10/19 03:31 10/10/19 08:36 General appearance: Present: no acute distress, well-nourished - EENT Eyes: Present: PERRL ENT: hearing intact, clear oral mucosa - Neck Neck: Present: supple, normal ROM - Respiratory Respiratory effort: normal Respiratory: bilateral: CTA - Cardiovascular Heart rate: 78 Rhythm: regular Heart Sounds: Present: S1 & S2. Absent: rub, click - Extremities Extremities: no ischemia, pulses symmetrical, No edema Peripheral Pulses: within normal limits - Abdominal General gastrointestinal: Present: soft, non-tender, non-distended, normal bowel sounds Male genitourinary: Present: normal - Integumentary Integumentary: Present: clear, warm, dry - Musculoskeletal Musculoskeletal: gait normal, strength equal bilaterally - Psychiatric Psychiatric: appropriate mood/affect, intact judgment & insight - Neurologic Neurologic: CNII-XII intact, moves all extremities - Allied Health Allied health notes reviewed: nursing, case management Plan Activity: no restrictions Diet: regular Follow up with: CHLOE LUJAN MD [Primary Care Provider] - 7 Days
[2019-10-10 12:58] VITALS: BP 149/89
[2019-10-10] MEDS ORDERED: IPRATROPIUM/ALBUTEROL SULFATE 3 ML AMPUL.NEB IH SCH (14:00)
[2019-10-10] MEDS: ALBUTEROL 2.5 MG/3 ML NEBU IH SCH (15:02)
== END 2019-10-10 13:10 | disposition home or self-care (01) | DRG 917 ==
LOC: ED 12:50 → IMCU 13:57
PROVIDERS: ADMIT Internal Medicine; ATTEND Internal Medicine
DX: T50.901A Poisoning by unspecified drugs, medicaments and biological substances, accidental (unintentional), initial encounter (principal); J69.0 Pneumonitis due to inhalation of food and vomit; J96.01 Acute respiratory failure with hypoxia; E87.2 Acidosis; F17.210 Nicotine dependence, cigarettes, uncomplicated; F19.10 Other psychoactive substance abuse, uncomplicated; Y92.89 Other specified places as the place of occurrence of the external cause
CPT/HCPCS: 36415; 70450; 71045; 80053; 80320; 82140; 82550; 82803; 82962; 83036; 83735; 85014; 85018; 85025; 85049; 85610; 85730; 87040; 93005; 93010; 94640; 94644; 94760; G0378; G0480; J0360; J1644; J1956; J7030